=== PATIENT | female | born 1980 | race Asian ===

== ENCOUNTER 2016-04-10 11:37 | Emergency (ER) | payer MEDICAID ==
[~2016-04-10] VITALS: Ht 149.9 cm; Wt 55.5 kg
[~2016-04-10 11:37] MED LIST: AZIT250T94 PO; FAMO-18 PO; IBUP-1542 PO; PROM5SYR2 PO
[2016-04-10 11:45] VITALS: Ht 149.9 cm; Wt 55.5 kg
[2016-04-10 12:39] LABS: URINE BLOOD (Dip) POC Negative (NEGATIVE)
[2016-04-10] MEDS ORDERED: NAPROXEN 500 MG TAB PO ONE (13:00)
[2016-04-10] MEDS ORDERED: NAPR-260 PO (14:32)
[2016-04-10] MEDS ORDERED: ACET325T33 PO (14:32)
[2016-04-10] MEDS ORDERED: CYCL-319 PO (14:32)
[2016-04-10 14:40] VITALS: BP 122/55; PULSE 76; RESP 18; TEMP 98
--- NOTE | 2016-04-10 15:46 | ERD ---
ER Documentation Chief Complaint Date/Time DATE: 04/10/16 TIME: 15:42 Chief Complaint ap chronic x 6 months HPI She is a 35-year-old female she complains of 6 months of lower abdominal pain and also low back pain. Her low back pain is worse with certain movements and it is also worse every morning when she wakes up. She denies fevers chills nausea vomiting. Her last menstrual period was in mid March 23. Her abdominal pain comes and goes. No UTI symptoms. She has had an appendectomy. She is taking ibuprofen for her pain. ROS All systems reviewed and are negative except as per history of present illness. Medications Home Meds Active Scripts Acetaminophen* (Tylenol*) 325 Mg Tablet, 2 TAB PO Q6 Y for PAIN AND OR ELEVATED TEMP, #20 TAB Prov:SAIDA RIVERA DO 04/10/16 Cyclobenzaprine Hcl* (Cyclobenzaprine Hcl*) 10 Mg Tablet, 10 MG PO TID, #15 TAB Prov:SAIDA RIVERA DO 04/10/16 Naproxen* (Naprosyn*) 500 Mg Tablet, 500 MG PO BID Y for PAIN AND/OR INFLAMMATION, #30 TAB Prov:SAIDA IRVERA DO 04/10/16 Promethazine HCl/Codeine (Prometh-Codein 6.25-10 mg/5 ml) 5 Ml Syrup, 5 ML PO Q6 for COUGH, #60 Prov:TRINA PALOMO PA-C 12/12/15 Ibuprofen* (Motrin*) 600 Mg Tab, 600 MG PO Q6H Y for PAIN AND OR ELEVATED TEMP, #30 TAB Prov:TRINA PALOMO PA-C 12/12/15 Famotidine* (Pepcid*) 20 Mg Tablet, 20 MG PO BID for 4 Days, TAB Prov:TRIXIE CRAIG 06/25/15 Azithromycin* (Zithromax*) 250 Mg Tablet, 250 MG PO .HEMAL DIRECTED, #6 TAB TAKE 500 MG (2 TABS) THE FIRST DAY THEN 250 MG (1 TAB) DAYS 2-5 Prov:NESTOR PINEDA PA-C 05/16/15 Allergies Allergies: Coded Allergies: No Known Allergy (Unverified , 04/10/16) PMhx/Soc History of Surgery: Yes (appendectomy) Anesthesia Reaction: No Hx Neurological Disorder: No Hx Respiratory Disorders: No Hx Cardiac Disorders: No Hx Psychiatric Problems: No Hx Miscellaneous Medical Probl: No Hx Alcohol Use: No Hx Substance Use: No Hx Tobacco Use: No Physical Exam Vitals Vital Signs Date Time Temp Pulse Resp B/P Pulse Ox O2 Delivery O2 Flow Rate FiO2 04/10/16 14:40 98.0 76 18 122/55 99 Room Air 04/10/16 11:45 98.0 86 18 123/58 99 Physical Exam Const: [Alert oriented 4, well-nourished well-developed nontoxic- appearing no apparent distress, interacts appropriately] Head: [Normocephalic/atraumatic, no scalp lesions] Eyes: [Normal Conjunctiva, PERRLA, EOMI no conjunctival injection no conjunctival discharge] ENT: [Normal External Ears, Nose and Mouth, no tonsillar exudates no tonsillar erythema no tonsillar edema oropharynx no erythema. bilateral ear canals are patent, bilateral tympanic membranes nonerythematous.] Neck: [Full range of motion. No meningismus. No cervical lymphadenopathy] Resp: [Clear to auscultation bilaterally, no wheezes rhonchi or rales, breathing normally, no tachypnea no nasal flaring no grunting no accessory muscle use no retractions] Cardio: [Regular rate and rhythm, no murmurs] Abd: [Soft, non tender, non distended. Normal bowel sounds, no rebound rigidity or guarding. Normoactive bowel sounds no flank tenderness, negative McBurney's negative Waddell sign.] Skin: [No petechiae or rashes, no hives no urticaria no abscess no laceration no new warmth] Back: [No midline or flank tenderness, full range of motion but with pain. She does have pain with extension some mild pain with flexion to 80 has full rotation and full side bending, low back not tender to palpation no flank tenderness. Ext: [No cyanosis, clubbing or edema] Neuro: M/S: Alert and oriented 4. Face: EOMI, face and pharynx with normal sensation and function Motor: Normal strength throughout, muscle strength is 5 out of 5 bilateral upper extremity and bilateral lower extremity Sensation: Normal sensation throughout Speech: Normal Cerebel: Normal coordination Normal gait DTR: 2+ and symmetric upper/lower extremities Psych: [Normal Mood and Affect, no suicidal ideation or homicide ideation] Results 24 hrs Laboratory Tests Test 04/10/16 12:39 Bedside Urine Blood Negative Bedside Urine Glucose (UA) Negative Bedside Urine Ketones (LAB) Negative Bedside Urine Leukocyte Esterase (L Negative Bedside Urine Nitrite (LAB) Negative Bedside Urine Protein (LAB) Negative Bedside Urine pH (LAB) 6.0 Current Medications Medications (Trade) Dose Ordered Sig/Marie Route PRN Reason Start Time Stop Time Status Last Admin Dose Admin Naproxen (Naprosyn) 500 mg ONCE ONCE PO 04/10/16 13:00 04/10/16 13:01 DC 04/10/16 12:45 Procedures/MDM Urine is negative there is no nitrites or leukocyte Estrace so I doubt UTI or pyelonephritis. She has had an appendectomy so I doubt appendicitis. Her abdomen is not tender so I doubt diverticulitis that she has had this pain for 6 months. Appears comfortable there is no fever I doubt tubo-ovarian abscess. Differential also includes pelvic torsion or pelvic cysts or hemorrhagic pelvises but it appears that it is the lower back pain that radiates to the abdomen. We gave her pain medication here and I will treat the low back pain with anti-inflammatories and muscle relaxers. Vital signs are stable she appears well nontoxic not in pain she is afebrile so she stable for discharge and outpatient follow-up. I did not feel she warranted CAT scans or pelvic ultrasound that she is not tender to palpation she has had the symptoms for 6 months. I did not feel she required labs as her vital signs are stable and she is not tender to palpation. Follow-up with PCP. Departure Diagnosis: Primary Impression: Lower abdominal pain Additional Impression: Low back pain Chronicity: chronic Back pain laterality: bilateral Sciatica presence: without sciatica Qualified Code: M54.5 - Chronic bilateral low back pain without sciatica Condition: Stable Referrals: COMMUNITY CLINICS YOU HAVE RECEIVED A MEDICAL SCREENING EXAM AND THE RESULTS INDICATE THAT YOU DO NOT HAVE A CONDITION THAT REQUIRES URGENT TREATMENT IN THE EMERGENCY DEPARTMENT. FURTHER EVALUATION AND TREATMENT OF YOUR CONDITION CAN WAIT UNTIL YOU ARE SEEN IN YOUR DOCTORS OFFICE WITHIN THE NEXT 1-2 DAYS. IT IS YOUR RESPONSIBILITY TO MAKE AN APPOINTMENT FOR FOLOW-UP CARE. IF YOU HAVE A PRIMARY DOCTOR --you should call your primary doctor and schedule an appointment IF YOU DO NOT HAVE A PRIMARY DOCTOR YOU CAN CALL OUR PHYSICIAN REFERRAL HOTLINE AT IF YOU CAN NOT AFFORD TO SEE A PHYSICIAN YOU CAN CHOSE FROM THE FOLLOWING [facility] [address] [facility] [address] [facility] [address] [facility] [address] [facility] [address] [facility]. [facility] [address] [facility]. [facility] YOU HAVE RECEIVED A MEDICAL SCREENING EXAM AND THE RESULTS INDICATE THAT YOU DO NOT HAVE A CONDITION THAT REQUIRES URGENT TREATMENT IN THE EMERGENCY DEPARTMENT. FURTHER EVALUATION AND TREATMENT OF YOUR CONDITION CAN WAIT UNTIL YOU ARE SEEN IN YOUR DOCTORS OFFICE WITHIN THE NEXT 1-2 DAYS. IT IS YOUR RESPONSIBILITY TO MAKE AN APPOINTMENT FOR FOLOW-UP CARE. IF YOU HAVE A PRIMARY DOCTOR --you should call your primary doctor and schedule and appointment IF YOU DO NOT HAVE A PRIMARY DOCTOR YOU CAN CALL OUR PHYSICIAN REFERRAL HOTLINE AT . IF YOU CAN NOT AFFORD TO SEE A PHYSICIAN YOU CAN CHOSE FROM THE FOLLOWING [facility]: [facility] [address] [place] [address] [facility] [address] [place] [address] [facility] [address] [place] [address] [facility] () Usted se gordon hecho un examen mdico de control que le indica que no est en gigi condicin que requiera tratamiento urgente en el Departamento de Emergencia. Un estudio ms profundo y el tratamiento de gonzalez condicin pueden esperar sin ningn riesgo hasta que usted sea atendida/o en el consultorio de gonzalez mdico o gigi cl rachael. Es responsabilidad suya arreglar gigi ruben para el seguimiento del dennis. MANEJO DE CONDICIONES NO URGENTES EN EL FUTURO 1) Si usted tiene un mdico de atencin primaria: Usted debera llamar a gonzalez mdico de atencin primaria antes de venir al departamento de emergencia. Despus de las horas de consultorio, gonzalez doctor o gonzalez asociado/a est disponible por telfono. El mdico o enfermero de isamar en el servicio telefnico puede asesorarle por charbel medio para atender el problema, o dennis contrario se puede programar gigi ruben. 2) Si usted no tiene un mdico de atencin primaria: Llame al mdico o clnica de referencia que aparece abajo aneta las horas de consultorio para hacer gigi ruben para que le vean. CLINICAS: [facility] [phone] [address] [facility] [facility] [phone] [facility] [phone] [address] [facility] [phone] [address]. [facility] [phone] [address] [facility] [phone] [address] [facility]. [facility] () Usted se gordon hecho un examen mdico de control que le indica que no est en gigi condicin que requiera tratamiento urgente en el Departamento de Emergencia. Un estudio ms profundo y el tratamiento de gonzalez condicin pueden esperar sin ningn riesgo hasta que usted sea atendida/o en el consultorio de gonzalez mdico o gigi cl rachael. Es responsabilidad suya arreglar gigi ruben para el seguimiento del dennis. MANEJO DE CONDICIONES NO URGENTES EN EL FUTURO 1) Si usted tiene un mdico de atencin primaria: Usted debera llamar a gonzalez mdico de atencin primaria antes de venir al departamento de emergencia. Despus de las horas de consultorio, gonzalez doctor o gonzalez asociado/a est disponible por telfono. El mdico o enfermero de isamar en el servicio telefnico puede asesorarle por charbel medio para atender el problema, o dennis contrario se puede programar gigi ruben. 2) Si usted no tiene un mdico de atencin primaria: Llame al mdico o condado institucions de referencia que aparece abajo aneta las horas de consultorio para hacer gigi ruben para que le vean. SI USTED NO PUEDE PAGAR PARA CLEO UN MEDICO puede ir a: [facility] [address] [place] [address] [facility] [address] [place], [place] [id number] [place] [address]+[facility] [address] [place] [address] [facility] [address] [place], [place] [id number] SAIDA RIVERA DO Apr 10, 2016 15:46
== END 2016-04-10 14:40 | disposition home or self-care (01) ==
LOC: FTE 11:37
DX: R10.30 Lower abdominal pain, unspecified (principal)
CPT/HCPCS: 81003; Z7502; Z7610; 99283

== ENCOUNTER 2016-08-18 09:44 | Emergency (ER) | payer MEDICAID ==
[~2016-08-18] VITALS: Ht 149.9 cm; Wt 58.0 kg
[~2016-08-18 09:44] MED LIST changes: +ACET325T33 PO; +CYCL-319 PO; +NAPR-260 PO
[2016-08-18 09:46] VITALS: Ht 149.9 cm; Wt 58.0 kg
[2016-08-18] MEDS ORDERED: HYDROCODONE/APAP (5/325) TAB PO ONE (11:00)
--- NOTE | 2016-08-18 11:28 | RADRPT ---
PROCEDURE: XR Lumbar Spine. CLINICAL INDICATION: Low back pain. TECHNIQUE: AP and lateral views of the lumbar spine are available for review COMPARISON: None available FINDINGS: No acute fracture or malalignment is identified. The normal lumbar lordosis is preserved. No radio paque foreign body is identified. The vertebral body heights are all normal. The intervertebral di sk heights are equally unremarkable. The posterior elements are equally intact. On the frontal vie w, there is normal alignment. Paraspinous soft tissues are grossly unremarkable. IMPRESSION: 1. Unremarkable lumbar spine x-ray series. RPTAT: QQ .Juan Perez MD, MD Date Time Electronically viewed and signed by .Juan Perez MD, on 08/18/2016 11:28 .R/
--- NOTE | 2016-08-18 11:35 | ERD ---
ER Documentation Chief Complaint Date/Time DATE: 08/18/16 TIME: 11:32 Chief Complaint lower back pain radiating to both legs x 6 months on and off HPI This a 36-year-old female who presents the emergency department today complaining of low back pain on and off for the past 6 months. States that she has pain mostly when standing for long periods of time. Patient denies any fevers or chills, dysuria, loss of bowel or bladder control. Denies any trauma ROS All systems reviewed and are negative except as per history of present illness. Medications Home Meds Active Scripts Acetaminophen* (Tylophen*) 500 Mg Capsule, 1 CAP PO Q6H Y for PAIN AND OR ELEVATED TEMP, #30 CAP Prov:ADRIANA SINGH PA-C 08/18/16 Naproxen* (Naprosyn*) 500 Mg Tablet, 500 MG PO BID Y for PAIN AND/OR INFLAMMATION, #30 TAB Prov:ADRIANA SINGH PA-C 08/18/16 Acetaminophen* (Tylenol*) 325 Mg Tablet, 2 TAB PO Q6 Y for PAIN AND OR ELEVATED TEMP, #20 TAB Prov:SAIDA RIVERA DO 04/10/16 Cyclobenzaprine Hcl* (Cyclobenzaprine Hcl*) 10 Mg Tablet, 10 MG PO TID, #15 TAB Prov:SAIDA RIVERA DO 04/10/16 Naproxen* (Naprosyn*) 500 Mg Tablet, 500 MG PO BID Y for PAIN AND/OR INFLAMMATION, #30 TAB Prov:SAIDA RIVERA DO 04/10/16 Promethazine HCl/Codeine (Prometh-Codein 6.25-10 mg/5 ml) 5 Ml Syrup, 5 ML PO Q6 for COUGH, #60 Prov:TRINA PALOMO PA-C 12/12/15 Ibuprofen* (Motrin*) 600 Mg Tab, 600 MG PO Q6H Y for PAIN AND OR ELEVATED TEMP, #30 TAB Prov:TRINA PALOMO PA-C 12/12/15 Famotidine* (Pepcid*) 20 Mg Tablet, 20 MG PO BID for 4 Days, TAB Prov:TRIXIE CRAIG 06/25/15 Azithromycin* (Zithromax*) 250 Mg Tablet, 250 MG PO .HEMAL DIRECTED, #6 TAB TAKE 500 MG (2 TABS) THE FIRST DAY THEN 250 MG (1 TAB) DAYS 2-5 Prov:NESTOR PINEDA PA-C 05/16/15 Allergies Allergies: Coded Allergies: No Known Allergy (Unverified , 04/10/16) PMhx/Soc History of Surgery: Yes (appendectomy) Anesthesia Reaction: No Hx Neurological Disorder: No Hx Respiratory Disorders: No Hx Cardiac Disorders: No Hx Psychiatric Problems: No Hx Miscellaneous Medical Probl: No Hx Alcohol Use: No Hx Substance Use: No Hx Tobacco Use: No Physical Exam Vitals Vital Signs Date Time Temp Pulse Resp B/P Pulse Ox O2 Delivery O2 Flow Rate FiO2 08/18/16 09:46 98.1 76 16 120/70 99 Physical Exam Const: No acute distress Head: Atraumatic Eyes: Normal Conjunctiva ENT: Normal External Ears, Nose and Mouth. Neck: Full range of motion..~ No meningismus. Resp: Clear to auscultation bilaterally Cardio: Regular rate and rhythm, no murmurs Skin: No petechiae or rashes Back: Lumbar spine midline tenderness and bilateral paraspinal tenderness. Negative straight leg raise. Pulses 2+. Distal neurovascular intact. No CVA tenderness. Ext: No cyanosis, or edema Neur: Awake and alert Psych: Normal Mood and Affect Results 24 hrs Current Medications Medications (Trade) Dose Ordered Sig/Marie Route PRN Reason Start Time Stop Time Status Last Admin Dose Admin Acetaminophen/ Hydrocodone Bitart (Many (5/325)) 1 tab ONCE ONCE PO 08/18/16 11:00 08/18/16 11:01 DC 08/18/16 11:05 DIAGNOSTIC IMAGING REPORT Patient: CRUZITO SWIFT : 1980 Age: 36 Sex: F MR #: [id number] DOS: 08/18/16 0000 Ordering MD: ADRIANA SINGH PA-C Location: [facility] Room/Bed: PROCEDURE: XR Lumbar Spine. CLINICAL INDICATION: Low back pain. TECHNIQUE: AP and lateral views of the lumbar spine are available for review COMPARISON: None available FINDINGS: No acute fracture or malalignment is identified. The normal lumbar lordosis is preserved. No radiopaque foreign body is identified. The vertebral body heights are all normal. The intervertebral disk heights are equally unremarkable. The posterior elements are equally intact. On the frontal view, there is normal alignment. Paraspinous soft tissues are grossly unremarkable. IMPRESSION: 1. Unremarkable lumbar spine x-ray series. RPTAT: QQ .Juan Perez MD, MD Date Time Electronically viewed and signed by .Juan Perez MD, MD on 08/18/2016 11: 28 .R/ CC: ADRIANA SINGH PA-C Procedures/MDM This is a 36-year-old female who presents the emergency department today complaining of back pain for the past 6 months that is been intermittent. Patient states that she does occasionally have pain in her legs and has pain with standing. Patient was requesting an x-ray Per the radiology report images of the lumbar spine are unremarkable. Low suspicion for acute fracture dislocation. Low suspicion for cauda equina or abscess. Patient is afebrile and otherwise well-appearing. Patient symptoms at this time is consistent with sprain versus strain versus internal derangement. I have explained to the patient that she does need to follow-up with a primary care physician for likely referral to orthopedics. I also feel the patient would benefit from physical therapy. Patient will be given a prescription for Naprosyn and Tylenol. I do not feel the patient would benefit from narcotics given the long duration of symptoms. At this time the patient is stable for discharge and outpatient management. Patient should follow up with their PCP in the next 1-2 days. They may return to the emergency department sooner for any persistent or worsening of symptoms. Patient understood and agreed with the plan. Departure Diagnosis: Primary Impression: Back pain Back pain location: low back pain Chronicity: chronic Back pain laterality : midline Sciatica presence: without sciatica Qualified Code: M54.5 - Chronic midline low back pain without sciatica Condition: Fair ADRIANA SINGH PA-C August 18, 2016 11:35
[2016-08-18] MEDS ORDERED: ACET500C5 PO (11:37)
[2016-08-18] MEDS ORDERED: NAPR-260 PO (11:37)
[2016-08-18 12:05] VITALS: BP 99/68; PULSE 78; RESP 16
== END 2016-08-18 12:05 | disposition home or self-care (01) ==
LOC: FTE 09:44
DX: M54.5 Low back pain (principal)
CPT/HCPCS: 72100; Z7502; Z7610

== ENCOUNTER 2016-11-12 12:31 | Emergency (ER) | payer SELFPAY ==
[~2016-11-12] VITALS: Ht 157.5 cm; Wt 55.0 kg
[~2016-11-12 12:31] MED LIST changes: +ACET500C5 PO; -FAMO-18 PO; +FAMO-96 PO
[2016-11-12 12:37] VITALS: Ht 157.5 cm; Wt 55.0 kg
[2016-11-12 13:26] LABS: BASOPHILS % 0.5 % (0.0-2.0); EOSINOPHILS % 0.5 % (0.0-7.0); HEMOGLOBIN 13.6 g/dl (12.0-16.0); LYMPHOCYTES # 1.3 10^3/ul (0.8-2.9); LYMPHOCYTES % 32.4 % (15.0-51.0); MEAN CORPUSCULAR HEMOGLOBIN 32.2 pg (29.0-33.0); MEAN CORPUSCULAR HGB CONC 34.9 g/dl (32.0-37.0); MEAN CORPUSCULAR VOLUME 92.4 fl (82.0-101.0); MEAN PLATELET VOLUME 9.4 fl (7.4-10.4); MONOCYTE # 0.4 10^3/ul (0.3-0.9); MONOCYTES % 11.4 % (0.0-11.0); NEUTROPHIL # 2.1 10^3/ul (1.6-7.5); NEUTROPHILS % 54.9 % (39.0-77.0); PLATELET COUNT 252 10^3/UL (140-415); RED BLOOD COUNT 4.22 10^6/ul (4.20-5.40); RED CELL DISTRIBUTION WIDTH 12.3 % (11.5-14.5); WHITE BLOOD COUNT 3.9 10^3/ul (4.8-10.8)
[2016-11-12 13:28] LABS: ADD UMIC YES; UR ASCORBIC ACID NEGATIVE (NEGATIVE); UR BILIRUBIN (Dip) NEGATIVE (NEGATIVE); UR BLOOD (Dip) 2+ mg/dL (NEGATIVE); UR CLARITY CLEAR (CLEAR); UR COLOR YELLOW (YELLOW); UR GLUCOSE (Dip) NEGATIVE (NEGATIVE); UR KETONES (Dip) 1+ mg/dL (NEGATIVE); UR LEUKOCYTE ESTERASE (Dip) NEGATIVE Leu/ul (NEGATIVE); UR MUCUS FEW /HPF (NONE SEEN); UR NITRITE (Dip) NEGATIVE (NEGATIVE); UR RBC 1 /HPF (0-5); UR SPECIFIC GRAVITY (Dip) 1.024 (1.003-1.030); UR SQUAMOUS EPITHELIAL CELL FEW /HPF (FEW); UR TOTAL PROTEIN (Dip) NEGATIVE (NEGATIVE); UR UROBILINOGEN (Dip) NEGATIVE (NEGATIVE)
[2016-11-12 13:57] LABS: ALBUMIN 4.9 g/dl (3.3-4.9); ALBUMIN/GLOBULIN RATIO 1.4; BILIRUBIN,INDIRECT 0.4 mg/dl (0-1.1); BILIRUBIN,TOTAL 0.4 mg/dl (0.2-1.3); CALCIUM 9.4 mg/dl (8.4-10.2); CREATININE 0.69 mg/dl (0.44-1.00); POTASSIUM 3.9 mmol/L (3.5-5.1); TOTAL PROTEIN 8.4 g/dl (6.1-8.1)
[2016-11-12 13:59] LABS: D-DIMER 294.8 ng/ml (<460)
--- NOTE | 2016-11-12 14:04 | RADRPT ---
PROCEDURE: Chest x-ray CLINICAL INDICATION: Pain. TECHNIQUE: One-view frontal. COMPARISON: 08/07/2014 FINDINGS: The cardiac silhouette is normal. No infiltrates are noted. No hilar abnormalities are identified. No pneumothorax or pleural effusions are visualized. IMPRESSION: 1. No active cardiopulmonary changes. RPTAT: HGSG .Eligoi Green MD, MD Date Time Electronically viewed and signed by .Eligio Green MD, MD on 11/12/2016 14:04 .G/
--- NOTE | 2016-11-12 14:29 | RADRPT ---
PROCEDURE: US Pelvis. CLINICAL INDICATION: Pelvic pain TECHNIQUE: Multiple sonographic images of the pelvis were obtained utilizing kline scale, Doppler a nd color flow imaging with transabdominal and endovaginal technique. The images were reviewed on a PACS workstation. COMPARISON: None. FINDINGS: The uterus is visualized and measures 7.7 x 3.8 x 4.5 cm. The endometrial echo complex measures 2.6 mm in thickness. No uterine masses are identified. The right ovary measures 2.8 x 1.3 x 2.0 cm . The left ovary measures 2.1 x 1.3 x 1.5 cm. A 1.9 cm irregularly shaped, simple appearing cyst is identified on the right ovary. The ovaries demonstrate normal vascularity. No adnexal masses or pelvic free fluid are noted. IMPRESSION: 1.8 cm irregularly shaped, simple cyst on the right ovary. This likely reflects a collapsing follic le. Otherwise, unremarkable exam. If further characterization of the organs of the pelvis is needed MRI should be considered. RPTAT: AA .Ricky Solis MD, Date Time Electronically viewed and signed by .Ricky Solis MD, MD on 11/12/2016 14:29 .P/
[2016-11-12] MEDS ORDERED: IBUP400T22 PO (14:39)
--- NOTE | 2016-11-12 14:48 | ERD ---
ER Documentation Chief Complaint Date/Time DATE: 11/12/16 TIME: 14:44 Chief Complaint pt c/o pelvic pain x 3 days 8 HPI 6-year-old female presents to the emergency department complaining of pelvic pain for the past 3 days. Patient states that her last menstrual period was about 1 month ago however she has irregular menses and she was placed on control which has not regulated her menstrual periods yet. Patient states that the pelvic pain is constant, rates it as achy 8 out of 10 since last night. Patient states that it she also has difficulty taking a deep breath in complains of shortness of breath. She denies any chest pain, abdominal pain, nausea vomiting diarrhea constipation. Patient states that she is unsure which oral contraceptives she takes. She has never taken a ultrasound ROS All systems reviewed and are negative except as per history of present illness. Medications Home Meds Active Scripts Ibuprofen* (Ibuprofen*) 400 Mg Tablet, 400 MG PO Q6H Y for PAIN, #30 TAB Prov:TRINA PALOMO PA-C 11/12/16 Acetaminophen* (Tylophen*) 500 Mg Capsule, 1 CAP PO Q6H Y for PAIN AND OR ELEVATED TEMP, #30 CAP Prov:ADRIANA SINGH PA-C 08/18/16 Naproxen* (Naprosyn*) 500 Mg Tablet, 500 MG PO BID Y for PAIN AND/OR INFLAMMATION, #30 TAB Prov:ADRIANA SINGH PA-C 08/18/16 Acetaminophen* (Tylenol*) 325 Mg Tablet, 2 TAB PO Q6 Y for PAIN AND OR ELEVATED TEMP, #20 TAB Prov:SAIDA RIVERA DO 04/10/16 Cyclobenzaprine Hcl* (Cyclobenzaprine Hcl*) 10 Mg Tablet, 10 MG PO TID, #15 TAB Prov:SAIDA RIVERA DO 04/10/16 Naproxen* (Naprosyn*) 500 Mg Tablet, 500 MG PO BID Y for PAIN AND/OR INFLAMMATION, #30 TAB Prov:SAIDA RIVERA DO 04/10/16 Promethazine HCl/Codeine (Prometh-Codein 6.25-10 mg/5 ml) 5 Ml Syrup, 5 ML PO Q6 for COUGH, #60 Prov:TRINA PALOMO PA-C 12/12/15 Ibuprofen* (Motrin*) 600 Mg Tab, 600 MG PO Q6H Y for PAIN AND OR ELEVATED TEMP, #30 TAB Prov:TRINA PALOMO PA-C 12/12/15 Famotidine* (Pepcid*) 20 Mg Tablet, 20 MG PO BID for 4 Days, TAB Prov:TRIXIE CRAIG 06/25/15 Azithromycin* (Zithromax*) 250 Mg Tablet, 250 MG PO .ElielPACK DIRECTED, #6 TAB TAKE 500 MG (2 TABS) THE FIRST DAY THEN 250 MG (1 TAB) DAYS 2-5 Prov:NESTOR PINEDA PA-C 05/16/15 Allergies Allergies: Coded Allergies: No Known Allergy (Unverified , 04/10/16) PMhx/Soc History of Surgery: Yes (appendectomy) Anesthesia Reaction: No Hx Neurological Disorder: No Hx Respiratory Disorders: No Hx Cardiac Disorders: No Hx Psychiatric Problems: No Hx Miscellaneous Medical Probl: Yes (ANEMIA) Hx Alcohol Use: No Hx Substance Use: No Hx Tobacco Use: No Smoking Status: Never smoker Physical Exam Vitals Vital Signs Date Time Temp Pulse Resp B/P Pulse Ox O2 Delivery O2 Flow Rate FiO2 11/12/16 12:37 98.3 85 17 120/66 95 Physical Exam GENERAL: well-developed/well-nourished, in no apparent distress, non-toxic appearing HENT: NC/AT, moist mucous membranes EYES: Conjunctiva normal NECK: Supple, no lymphadenopathy PULM: CTA bilaterally, no rales, rhonchi, or wheezing heard CV: Normal S1S2, RRR, good capillary refill GI: Soft, non-distended, tender to palpation in the suprapubic region Normal bowel sounds, no masses or organomegaly felt on exam No gross peritonitis, no bruits Negative Rovsing, negative [place], negative McBurney's point, Negative CVAT BACK: No masses EXT: No clubbing, cyanosis, or edema NEURO: Alert and Orientated SKIN: Intact, normal turgor PSYCH: Normal mood and mentation Result Diagram: 11/12/16 1315 11/12/16 1315 Results 24 hrs Laboratory Tests Test 11/12/16 13:15 White Blood Count 3.910^3/ul Red Blood Count 4.2210^6/ul Hemoglobin 13.6g/dl Hematocrit 39.0% Mean Corpuscular Volume 92.4fl Mean Corpuscular Hemoglobin 32.2pg Mean Corpuscular Hemoglobin Concent 34.9g/dl Red Cell Distribution Width 12.3% Platelet Count 43555^3/UL Mean Platelet Volume 9.4fl Neutrophils % 54.9% Lymphocytes % 32.4% Monocytes % 11.4% Eosinophils % 0.5% Basophils % 0.5% Nucleated Red Blood Cells % 0.0/100WBC Neutrophils # 2.110^3/ul Lymphocytes # 1.310^3/ul Monocytes # 0.410^3/ul Eosinophils # 0.010^3/ul Basophils # 0.010^3/ul Nucleated Red Blood Cells # 0.010^3/ul D-Dimer 294.80ng/ml D-Dimer Comment Urine Color YELLOW Urine Clarity CLEAR Urine pH 6.0 Urine Specific [place] 1.024 Urine Ketones 1+mg/dL Urine Nitrite NEGATIVEmg/dL Urine Bilirubin NEGATIVEmg/dL Urine Urobilinogen NEGATIVEmg/dL Urine Leukocyte Esterase NEGATIVELeu/ul Urine Microscopic RBC 1/HPF Urine Microscopic WBC 1/HPF Urine Squamous Epithelial Cells FEW/HPF Urine Mucus FEW/HPF Urine Hemoglobin 2+mg/dL Urine Glucose NEGATIVEmg/dL Urine Total Protein NEGATIVEmg/dl Sodium Level 143mmol/L Potassium Level 3.9mmol/L Chloride Level 104mmol/L Carbon Dioxide Level 24mmol/L Anion Gap 19 Blood Urea Nitrogen 10mg/dl Creatinine 0.69mg/dl Glucose Level 100mg/dl Calcium Level 9.4mg/dl Total Bilirubin 0.4mg/dl Direct Bilirubin 0.00mg/dl Indirect Bilirubin 0.4mg/dl Aspartate Amino Transf (AST/SGOT) 31IU/L Alanine Aminotransferase (ALT/SGPT) 51IU/L Alkaline Phosphatase 54IU/L Total Protein 8.4g/dl Albumin 4.9g/dl Globulin 3.50g/dl Albumin/Globulin Ratio 1.40 Lipase 38U/L Procedures/MDM This is a 36-year-old female presenting to emergency department complaining of pelvic pain for the past couple days. Patient was found to have ovarian cyst on diagnostic testing. There was no evidence of ovarian torsion, ruptured ovarian cyst, urinary tract infection, appendicitis, diverticulosis. Patient appears well, she is nontoxic and afebrile. Lab work was done in the ED, there was no evidence of leukocytosis or anemia. CMP was unremarkable. Urinalysis did not show any evidence of infection. Pelvic ultrasound was done and radiologist stated: 1.8 cm irregularly shaped, simple cyst on the right ovary. This likely reflects a collapsing follicle. Otherwise, unremarkable exam. If further characterization of the organs of the pelvis is needed MRI should be considered. Since patient was complaining of shortness of breath with deep ventilation, a chest x-ray was done and did not show any evidence of infiltrates, pneumothorax or pleural effusion. Patient's pulse ox is normal she is breathing well on room air, airways are intact. This is likely due to anxiety. I discussed the patient that she is appropriate to be discharged home and to follow-up with her [facility] to change her oral contraceptive since she is having breakthrough bleeding. Patient understands and agrees with this plan Departure Diagnosis: Primary Impression: Pelvic pain Condition: Stable Patient Instructions: What Are Ovarian Cysts?, Dysmenorrhea, Ovarian Cyst Additional Instructions: FOLLOW UP WITH YOUR PRIMARY CARE PHYSICIAN TOMORROW.Return to this facility if you are not improving as expected. Take all medicines as directed. Return to this facility if you are not improving as expected. TRINA PALOMO PA-C Nov 12, 2016 14:48
[2016-11-12 15:03] VITALS: BP 128/69; PULSE 70; RESP 17; TEMP 98.7
== END 2016-11-12 15:04 | disposition home or self-care (01) ==
LOC: FTE 12:31
DX: R10.2 Pelvic and perineal pain (principal)
CPT/HCPCS: 71010; 76830; 76856; 80053; 81001; 83690; 85025; 85378